=== PATIENT | male | born 1990 | race Caucasian/White ===

== ENCOUNTER 2016-06-06 17:26 | Emergency (ER) | payer MEDICAID ==
[2014-04-06 13:58] VITALS: BMI 46.0
[~2016-06-06 17:26] MED LIST: BACTRIM DS TABL1 TAB PO; BACTROBAN NASAL1 GM NASAL; BENZTROPINE MESY2 MG PO; HALDOL5 MG PO; IBUPROFEN600 MG PO; OXYCODONE HCL5 MG PO; SEROQUEL100 MG PO; SEROQUEL300 MG PO; ULTRAM50 MG PO; XANAX XR2 MG PO; XANAX2 MG PO; ZOLOFT100 MG PO
== END 2016-06-06 19:46 | disposition home or self-care (01) ==
LOC: D.ER 17:26
DX: B02.9 Zoster without complications (principal); F41.9 Anxiety disorder, unspecified; F31.9 Bipolar disorder, unspecified; B19.20 Unspecified viral hepatitis C without hepatic coma; F43.10 Post-traumatic stress disorder, unspecified; F17.200 Nicotine dependence, unspecified, uncomplicated